=== PATIENT | male | born 1990 | race Caucasian/White ===

== ENCOUNTER 2017-11-02 21:36 | Emergency (ER) | payer OTHER ==
[~2017-11-02] VITALS: Ht 177.8 cm; Wt 74.8 kg
--- NOTE | 2017-11-02 21:38 | NUR ---
PT BIB [facility] AFTER BEING FOUND SLEEPING IN HIS CAR. PT STATES HE WAS SLEEPING IN HIS CAR AFTER DRINKING BC HE WANTED TO SOBER UP. PT WALKS IN STEADY GAIT, AAOX3, SPEECH CLEAR. VSS. NO ACUTE DISTRESS NOTED.
--- NOTE | 2017-11-02 21:49 | NUR ---
Patient discharged to home in stable conditon. Written and verbal after care instructions given. Patient verbalizes understanding of instructions. Pt left ER in steady gait. AAOX3. All belongings with pt. VSS.
[2017-11-02 21:50] VITALS: BP 138/71
== END 2017-11-02 21:51 | disposition home or self-care (01) ==
LOC: ER 21:38
DX: Z00.00 Encounter for general adult medical examination without abnormal findings (principal)
CPT/HCPCS: A4663